=== PATIENT | female | born 1970 | race Caucasian/White ===

== ENCOUNTER 2018-01-17 10:13 | Inpatient (IN) | payer BC ==
--- OUTSIDE RECORDS SUMMARY | 2018-01-17 10:34 | XMS REPORT ---
:1970 External Reference #:[id number] Author Organization [facility] Address [address] [place] [address] Phone [phone] Care Team Providers Name Role Phone Marcelina Metzger M.D., R.D. 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 [address] PayID: [id number] [place] [address] Advance Directives Description No Advance Directives Problems Date Description Provider Status Onset: 11/19/2012 Myalgia & Myositis Unspec Hina Davis M.D. Active Onset: 11/19/2012 Depressive disorder Hina Davis M.D. Active Onset: 11/19/2012 Gastroesophageal reflux disease Hina Davis M.D. Active Onset: 11/19/2012 Anxiety state Hina Davis M.D. Active Onset: 11/19/2012 Low back pain Hina Davis M.D. Active Family History Date Family Member(s) Problem(s) Comments Father due to Auto Accident () - Age 33 Mother Hypertension Mother Hypercholesterolemia Mother Obesity Mother Diabetes Mother Depression First Daughter Asthma First Daughter Allergies Second Daughter Asthma Second Daughter Allergies Social History Type Date Description Comments Lives With Daughter x2 Lives With Spouse Smoke-Free Home is not smoke-free Pets several cats Pets 1 dog Cigarette Use Former Cigarette Smoker 5-10 Cigarettes Daily ETOH Use Denies alcohol use Recreational Drug Use Sporadically uses Marijuana Smoking Patient is a former smoker Daily Caffeine Does Not Consume Caffeine Guns in Home No Allergies, Adverse Reactions, Alerts Date Description Reaction Status Severity Comments 11/19/2012 Chiquita Peripheral Neuropathy active Mild to Moderate Medications Medication Date Status Form Strength Qnty SIG Indications Ordering Provider Imitrex 02/19/ Active Solution 6mg/0.5ML 5unit Use AT [facility] Statdose 2017 Cartridge s Onset Of Loly Metzger Migraine M.D., R.D. Headache, May Repeat In 2 Hours Diclofenac 09/30/ Active Gel 1% 100gm apply 4 M79.604 Candi Sodium 2017 grams of Teresa, gel to [facility] affected knee up to 4 times/day Ferrous 08/21/ Active Tablets 324(38Fe) 60tab 1 by mouth Candi Gluconate 2017 mg s twice a day Teresa, [facility] Fetzima 01/20/ Active Caps ER 80mg 90cap take 1 Marcelina 2014 24HR s capsule by Yassine, mouth every M.D., R.D. day Nexium 11/19/ Active Capsules DR 40mg 90cap Take One K21.9 Marcelina 2012 s Capsule By Yassine, Mouth Once M.D., R.D. Daily Ventolin HFA / Active Aerosol 108(90Base 2 puffs Unknown 0000 ) mcg/Act every every 4-6 hours as needed wheezing/ti ghtness Corlanor / Active Tablets 5mg 1 po bid Unknown 0000 Ultram / Active Tablets 50mg 90tab take one M54.5 Marcelina s tablet by Yassine, mouth twice M.D., R.D. a day as needed for pain maximum daily dose of 2 tablets- code d Vitamin B12 / Active Tablets ER 1000mcg 1 by mouth Unknown 0000 every day- sublingual- for vitamin b12 deficiency Ascorbic Acid / Active Tablets 500mg One Daily Unknown 0000 Fish Oil / Active Capsules DR 1200mg 1 by mouth Unknown 0000 Twice Daily Flaxseed Oil / Active Capsules 1400mg 1 tab by Unknown 0000 mouth Daily Adderall 03/29/ Hx Tablets 10mg 90tab 1 tab by Candi 2014 - s mouth every Teresa, 03/20/ day [facility] CENTER OPERATOR-C 2016 Fetzima 01/06/ Hx Caps ER 80mg Candi 2014 - 24HR Teresa, 01/06/ [facility] CENTER OPERATOR-C 2014 Cytomel 01/06/ Hx Tablets 25mcg Candi 2014 - Teresa, 01/20/ CALL CENTER OPERATOR-C 2014 Fetzima 01/06/ Hx Caps ER 40mg 30cap 1 tablet Candi 2014 - 24HR s every day Teresa, 01/20/ for 2 weeks CALL CENTER [facility]PERATOR-C 2014 Adderall 01/06/ Hx Tablets 5mg 30tab 1 tab po qd Candi 2014 - s Teresa, 01/20/ CALL CENTER OPERATOR-C 2014 Ondansetron 01/06/ Hx Tablets 4mg 30tab dissolve 1 Candi 2014 - Dispers s tab by Teresa, 03/20/ mouth three [facility] CENTER OPERATOR[facility] 2016 times a day as needed nausea Fluocinonide- 06/22/ Hx Cream 0.05% 30gm apply to Candi Darron 2014 - rash bid Teresa, 03/20/ [facility] CENTER OPERATOR-C 2016 Prozac 11/19/ Hx Capsules 20mg 30cap Take one po Hina 2012 - s bid Mello Davis 01/06/ Zenaida 2014 Valium / Hx Tablets 5mg Take one Unknown 0000 - pill po at 03/20/ hs 2015 Tramadol HCL / Hx Tablets ER 100mg Take one po Unknown ER 0000 - 24HR at hs 2014 Invega / Hx Tablets ER 3mg 30tab Unknown 0000 - 24HR s 2014 Adderall / Hx Tablets 10mg 30tab Take one po Unknown 0000 - s in Am 2014 Dulera / Hx Aerosol 200-5mcg/A 13gm One puff po Calderon 0000 - ct bid Wei 01/06/ MD pierre 2014 Qnasl / Hx Aerosol 80mcg/Act 8.700 Ohe spray Calderon, 0000 - gm to each Wei 01/06/ heather jay MD 2014 daily Cardizem / Hx Tablets 30mg Maghaydah, 0000 - Qutaybeh 04/23/ MD Trina 2015 Metoprolol / Hx Tablets ER 50mg 1 by mouth Unknown Succinate ER 0000 - 24HR every day 2016 Sumatriptan / Hx Solution 6mg/0.5ML 7.5ml use at [place] [address] - onset of Teresa, 02/19/ migraine [facility] CENTER OPERATOR-C 2017 headache. May repeat after 2 hours Immunizations CPT Code Status Date Vaccine Lot # [id number] Given 07/08/2016 Tdap (Adacel) [id number] Refused 03/20/2016 Influenza Virus Vaccine, Quadrivalent, 3 Yr > Quad , Preserv Free Vital Signs Date Vital Result Comment 12/22/2017 Weight 191.00 lb Weight in kg's 86.638 BP Systolic 138 mmHg Recheck 138/80 BP Diastolic 96 mmHg Recheck 138/80 Heart Rate 112 /min Body Temperature 97.2 F Respiratory Rate 18 /min O2 % BldC Oximetry 95 % 09/30/2016 Weight 200.00 lb Weight in kg's 90.720 BP Systolic 122 mmHg BP Diastolic 76 mmHg Heart Rate 95 /min Body Temperature 97.0 F Respiratory Rate 16 /min O2 % BldC Oximetry 96 % 07/08/2016 Weight 191.00 lb Weight in kg's 86.638 BP Systolic 120 mmHg BP Diastolic 78 mmHg Heart Rate 100 /min Body Temperature 96.3 F Respiratory Rate 24 /min Height 64 inches 5'4" BMI (Body Mass Index) 32.8 kg/m2 O2 % BldC Oximetry 96 % 03/20/2016 Weight 190.00 lb Weight in kg's 86.184 BP Systolic 120 mmHg BP Diastolic 72 mmHg Heart Rate 76 /min Body Temperature 98.5 F Respiratory Rate 12 /min 03/29/2015 Weight 185.00 lb Weight in kg's 83.916 BP Systolic 116 mmHg BP Diastolic 74 mmHg Heart Rate 96 /min Height 64 inches 5'4" BMI (Body Mass Index) 31.8 kg/m2 01/20/2015 Weight 183.00 lb Weight in kg's 83.009 BP Systolic 120 mmHg BP Diastolic 80 mmHg Heart Rate 96 /min Body Temperature 96.3 F 01/06/2015 Weight 188.00 lb Weight in kg's 85.277 BP Systolic 120 mmHg BP Diastolic 78 mmHg Heart Rate 110 /min Body Temperature 96.9 F 02/25/2013 Weight 187.00 lb Weight in kg's 84.823 BP Systolic 110 mmHg BP Diastolic 60 mmHg Heart Rate 88 /min 11/19/2012 Weight 177.00 lb Weight in kg's 80.287 BP Systolic 112 mmHg BP Diastolic 80 mmHg Heart Rate 76 /min Height 64.25 inches 5'4.25" BMI (Body Mass Index) 30.1 kg/m2 Results Test Date Test Result H/L Range Note Lipid Profile (Trig/Chol/HDL) 12/30/2017 Triglycerides 368 mg/dL 1 Cholesterol 255 mg/dL 2 HDL Cholesterol 49.6 mg/dL 3 LDL Cholesterol 132 mg/dL 4 Laboratory test 12/30/2017 LDL Cholesterol 150 mg/dL 5 finding Direct Laboratory test 09/11/2017 Surgical Pathology SEE RESULT BELOW 6 finding Laboratory test 08/28/2017 Cytology SEE RESULT BELOW 7 finding CBC Auto Diff 02/13/2017 White Blood Count 17.4 10^3/uL High 3.5-10.8 Red Blood Count 5.18 10^6/uL 4.0-5.4 Hemoglobin 15.3 g/dL 12.0-16.0 Hematocrit 46 % 35-47 Mean Corpuscular Volume 89 fL 80-97 Mean Corpuscular Hemoglobin 30 pg 27-31 Mean Corpuscular HGB Conc 33 g/dL 31-36 Red Cell Distribution Width 15 % 10.5-15 Platelet Count 406 10^3/uL 150-450 Mean Platelet Volume 7 um3 Low 7.4-10.4 Abs Neutrophils 13.5 10^3/uL High 1.5-7.7 Abs Lymphocytes 2.8 10^3/uL 1.0-4.8 Abs Monocytes 0.9 10^3/uL High 0-0.8 Abs Eosinophils 0.2 10^3/uL 0-0.6 Abs Basophils 0.1 10^3/uL 0-0.2 Abs Nucleated RBC 0 10^3/uL Granulocyte % 77.3 % 38-83 Lymphocyte % 15.9 % Low 25-47 Monocyte % 5.2 % 1-9 Eosinophil % 1.2 % 0-6 Basophil % 0.4 % 0-2 Nucleated Red Blood Cells % 0 Iron & Iron Binding Capacity 02/13/2017 Iron 56 g/dL 50-212 Unsaturated Iron Binding 392 g/dL Total Iron Binding Capacity 448 g/dL 250-450 % Iron Saturation 13 % Low 15-55 Iron & Iron Binding Capacity 10/01/2016 Iron 28 g/dL Low 50-212 Unsaturated Iron Binding 413 g/dL Total Iron Binding Capacity 441 g/dL 250-450 % Iron Saturation 6 % Low 15-55 Laboratory test finding 10/01/2016 Ferritin 19.2 ng/mL 11-307 Retic Count 07/17/2016 Retic Count 1.3 % 0.5-1.5 Corrected Retic Count 0.9 % 0.5-1.5 Maturation Factor Retic 1.5 Retic Index 0.60 Mean Retic Volume 85.7 Immature Retic Fraction 0.49 RBC Retic Count 5.06 10^6/uL 4.6-6.2 Hematocrit for Retic CNT 30 % Low 35-47 Laboratory test finding 07/17/2016 Ferritin < 10.0 ng/mL Low 11-307 8 Folic Acid (Folate) 3.07 ng/mL >3.99 9 Vitamin B12 634 pg/mL 180-914 10 Iron & Iron Binding 07/17/2016 Total Iron Binding 620 g/dL High 250-450 Capacity Capacity Iron < 15 g/dL Low 50-212 Unsaturated Iron Binding 605.42092 g/dL % Iron Saturation 2 % Low 15-55 Comp Metabolic Panel 07/08/2016 Sodium 133 mmol/L 133-145 Potassium 4.6 mmol/L 3.5-5.0 Chloride 101 mmol/L 101-111 Co2 Carbon Dioxide 28 mmol/L 22-32 Anion Gap 4 mmol/L 2-11 Glucose 97 mg/dL 70-100 Blood Urea Nitrogen 15 mg/dL 6-24 Creatinine 0.83 mg/dL 0.51-0.95 BUN/Creatinine Ratio 18.1 8-20 Calcium 9.8 mg/dL 8.6-10.3 Total Protein 7.4 g/dL 6.4-8.9 Albumin 4.4 g/dL 3.2-5.2 Globulin 3.0 g/dL 2-4 Albumin/Globulin Ratio 1.5 1-3 Total Bilirubin 0.20 mg/dL 0.2-1.0 Alkaline Phosphatase 64 U/L 34-104 Alt 22 U/L 7-52 Ast 18 U/L 13-39 Egfr Non- 73.4 >60 Egfr 94.4 >60 11 CBC Auto Diff 07/08/2016 White Blood Count 10.5 10^3/uL 3.5-10.8 Red Blood Count 5.27 10^6/uL 4.0-5.4 Hemoglobin 9.5 g/dL Low 12.0-16.0 Hematocrit 32 % Low 35-47 Mean Corpuscular Volume 60 fL Low 80-97 Mean Corpuscular Hemoglobin 18 pg Low 27-31 Mean Corpuscular HGB Conc 30 g/dL Low 31-36 Red Cell Distribution Width 19 % High 10.5-15 Platelet Count 542 10^3/uL High 150-450 Mean Platelet Volume 7 um3 Low 7.4-10.4 Abs Neutrophils 7.1 10^3/uL 1.5-7.7 Abs Lymphocytes 2.4 10^3/uL 1.0-4.8 Abs Monocytes 0.7 10^3/uL 0-0.8 Abs Eosinophils 0.1 10^3/uL 0-0.6 Abs Basophils 0.1 10^3/uL 0-0.2 Abs Nucleated RBC 0.01 10^3/uL Granulocyte % 67.6 % 38-83 Lymphocyte % 23.2 % Low 25-47 Monocyte % 6.9 % 1-9 Eosinophil % 1.3 % 0-6 Basophil % 1.0 % 0-2 Nucleated Red Blood Cells % 0.1 Lipid Profile (Trig/Chol/HDL) 07/08/2016 Triglycerides 477 mg/dL 12 Cholesterol 269 mg/dL 13 HDL Cholesterol 49.2 mg/dL 14 LDL Cholesterol (SEE NOTE) mg/dL 15 Cell Morphology 07/08/2016 Macrocytosis 1+ Hypochromasia 1+ Polychromasia 1+ Elliptocyte 1+ Urine DIP 01/20/2015 Specific Dennison 1.030 High 1.01-1.02 Urine pH 5 5-6 Leukocytes NEG Neg Urine Nitrites NEG Neg Total Protein, Urine TRACE Neg Urine Glucose 50 High Norm Urine Ketones NEG Neg Urobilinogen NORM Norm Urine Bilirubin NEG Neg Urine Blood about 250Ery/uL Neg Comp Metabolic Panel 01/06/2015 Sodium 135 mmol/L 133-145 Potassium 4.6 mmol/L 3.5-5.0 Chloride 101 mmol/L 101-111 Co2 Carbon Dioxide 25 mmol/L 22-32 Anion Gap 9 mmol/L 2-11 Glucose 110 mg/dL High 70-100 Blood Urea Nitrogen 18 mg/dL 6-24 Creatinine 0.99 mg/dL High 0.51-0.95 BUN/Creatinine Ratio 18.2 8-20 Calcium 10.3 mg/dL 8.6-10.3 Total Protein 7.7 g/dL 6.4-8.9 Albumin 4.8 g/dL 3.2-5.2 Globulin 2.9 g/dL 2-4 Albumin/Globulin Ratio 1.7 1-3 Total Bilirubin 0.30 mg/dL 0.2-1.0 Alkaline Phosphatase 81 U/L 34-104 Alt 68 U/L High 7-52 Ast 39 U/L 13-39 Egfr Non- 60.4 >60 Egfr 77.7 >60 16 Laboratory test finding 01/06/2015 Amylase 21 U/L Low 29-103 Lipase 14 U/L 11.0-82.0 CBC Auto Diff 01/06/2015 White Blood Count 8.9 10^3/uL 4.8-10.8 Red Blood Count 5.71 10^6/uL High 4.0-5.4 Hemoglobin 12.3 g/dL 12.0-16.0 Hematocrit 41 % 35-47 Mean Corpuscular Volume 71 fL Low 80-97 Mean Corpuscular Hemoglobin 22 pg Low 27-31 Mean Corpuscular HGB Conc 31 g/dL 31-36 Red Cell Distribution Width 18 % High 10.5-15 Platelet Count 501 10^3/uL High 150-450 Mean Platelet Volume 7 um3 Low 7.4-10.4 Abs Neutrophils 6.1 10^3/uL 1.5-7.7 Abs Lymphocytes 2.1 10^3/uL 1.0-4.8 Abs Monocytes 0.5 10^3/uL 0-0.8 Abs Eosinophils 0.1 10^3/uL 0-0.6 Abs Basophils 0.1 10^3/uL 0-0.2 Abs Nucleated RBC 0 10^3/uL Granulocyte % 68.9 % 38-83 Lymphocyte % 24.2 % Low 25-47 Monocyte % 5.6 % 1-9 Eosinophil % 0.7 % 0-6 Basophil % 0.6 % 0-2 Nucleated Red Blood Cells % 0 Laboratory test finding 01/06/2015 T3 Total 1.19 ng/mL 0.87-1.78 Free T4 (Free Thyroxine) 0.83 ng/mL 0.61-1.12 Thyroxine 7.67 ?g/dL 6.09-12.23 TSH (Thyroid Stim Horm) 3.23 ?IU/mL 0.34-5.60 Thyroperoxidase AB 0.67 IU/mL <9 Lipid Profile (Trig/Chol/HDL) 02/15/2013 Triglycerides 210 mg/dL High 40- 200 Cholesterol 253 mg/dL High Less than 200 HDL Cholesterol 56 mg/dL 40-60 17 Cholesterol/HDL Ratio 4.5 Average High 1-4.44 LDL Cholesterol 155.0 High Less Than 100 18 Liver Function Panel 02/15/2013 Total Protein 7.1 g/dL 6.2-8.1 Albumin 4.4 g/dL 3.6-5.4 Globulin 2.7 g/dL 2-4 Albumin/Globulin Ratio 1.6 1-3 Total Bilirubin 0.2 mg/dL Low 0.4-1.5 Direct Bilirubin 0.1 mg/dL 0.1-0.5 Indirect Bilirubin 0.1 mg/dL Low 0.3-1.0 Alkaline Phosphatase 62 U/L 30-110 Alt 34 U/L 14-54 Ast 30 U/L 12-42 CBC No Diff 02/15/2013 White Blood Count 6.9 10^3/uL 4.8-10.8 Red Blood Count 5.08 10^6/uL 4.0-5.4 Hemoglobin 13.1 g/dL 12.0-16.0 Hematocrit 42 % 35-47 Mean Corpuscular Volume 83 fL 80-97 Mean Corpuscular Hemoglobin 26 pg Low 27-31 Mean Corpuscular HGB Conc 31 g/dL 31-36 Red Cell Distribution Width 19 % High 10.5-15 Platelet Count 317 10^3/uL 150-450 Mean Platelet Volume 7 um3 Low 7.4-10.4 Basic Metabolic Panel 02/15/2013 Sodium 136 mmol/L 133-145 Potassium 4.3 mmol/L 3.5-5.0 Chloride 101 mmol/L 101-111 Co2 Carbon Dioxide 27.0 mmol/L 22-32 Anion Gap 8.0 mmol/L 2-11 Glucose 103 mg/dL High 70-100 Blood Urea Nitrogen 13 mg/dL 6-24 Creatinine 0.90 mg/dL 0.50-1.40 BUN/Creatinine Ratio 14.4 8-20 Calcium 9.6 mg/dL 8.1-9.9 Egfr Non- 67.7 >60 Egfr 87.1 >60 19 Laboratory test finding 02/15/2013 TSH (Thyroid Stimulating 2.57 miu/mL 0.34-5.60 20 Horm) Vitamin D 1,25-Dihydroxy 59 pg/mL 1 Desirable: <150 Borderline High: 150-199 High: 200-499 Very High: >500 2 Desirable: <200 Borderline High: 200-239 High: >239 3 Low: <40 Desirable: 40-60 High: >60 4 Desirable: <100 Near Optimal: 100-129 Borderline High: 130-159 High: 160-189 Very High: >189 5 Desirable: <100 Near Optimal: 100-129 Borderline High: 130-159 High: 160-189 Very High: >189 6 SEE RESULT BELOW Name: ANTOINETTE ARAUJO : [address]: Carmen Davis MD Acct: [id number] Unit: [id number] AGE: 47 Location: [facility] Re09/11/17 SEX: F Status: REG REF SPEC: [id number] JULIA: 09/11/171355 [facility] DR: Carmen Davis MD REQ: [id number] RECD: 09/11/17 STATUS: JAMIL SAM DR: Hina Davis MD _ ORDERED: LEVEL 4 COMMENTS: [id number] FINAL DIAGNOSIS Uterus, endometrium, biopsy: -- Early secretory endometrium. -- No evidence of hyperplasia or malignancy. PRE-OPERATIVE DIAGNOSIS Dysfunctional uterine bleeding GROSS DESCRIPTION The specimen is received in formalin labeled, EM BX, and consists of a 2.0 x 1.7 x 0.3 cm aggregate of white-pink granular to polypoid soft tissue fragments admixed with scant blood tinged mucus, which is filtered and entirely submitted in one cassette. Signed (signature on file) Dominique Teague MD 11/24 1057 END OF REPORT DEPARTMENT OF PATHOLOGY, [address] [place] [address] Temo Dominguez M.D. Director [facility] # [id number] 7 SEE RESULT BELOW Name: ANTOINETTE ARAUJO : [address]: Carmen Davis MD Acct: [id number] Unit: [id number] AGE: 47 Location: [facility] Re08/28/17 SEX: F Status: REG REF SPEC: [id number] JULIA: 08/28/17-135[facility] DR: Carmen Davis MD REQ: [id number] RECD: 08/28/170739 STATUS: JAMIL SAM DR: Candi Carroll LITERARY AGENT _ ORDERED: TP IMAGE ANAL, MC KAY MACHINE OPERATOR PHYS INTERP, HPV/Thin Prep COMMENTS: [id number] Negative for Intraepithelial lesion or Malignancy Endometrial cells in a woman over or equal to 45 years of age COMMENTS: Endometrial cells after age 45, particularly out of phase or after menopause may be associated with benign endometrium, hormonal alterations and less commonly, endometrial/uterine abnormalities. Clinical correlation is recommended. Endometrial cells correlate with the menstrual history provided. A. Ectocervical/Endocervical Specimen Adequacy: Satisfactory of evaluation Transformation zone component identified Patient Information: HPV: High risk HPV RNA testing regardless of pap results. Actual Specimen Date: 08/28/17 Last Menstrual Date: 08/24/17 Date of Last Specimen: 03/09/15 Date Time Test Result Flag (u) Normal Range 08/28/17 1358 @ HPV RNA Negative Negative @ @ The high-risk HPV types detected by the assay include: 16, @ 18, 31, 33, 35, 39, 45, 51, 52, 56, 58, 59, 66, and 68. Signed (signature on file) Dominique Teague MD 1124 This Pap test was evaluated with the assistance of the ThinPrep Test Imaging System. Due to cytologic findings at the ship superintendent microscope, comprehensive manual rescreening by a Terrazzo Helper may be required. The Pap Smear is a screening test designed to aid in the detection of premalignant and malignant conditions of the uterine cervix. It is not a diagnostic procedure and should not be used as the sole means of detecting cervical cancer. Both false- positive and false- negative reports do occur. Depending on your risk status, a Pap smear should be obtained and evaluated every 1-3 years. END OF REPORT DEPARTMENT OF PATHOLOGY, [address] [place] [address] RUN DATE: 09/01/17 [facility] LAB LIVE PAGE 1 Patient: AUGUSTINANTOINETTE [id number] (Continued) Temo Dominguez M.D. Director [facility] # [id number] Normal Range 180 to 914 Indeterminate Range 145 to 180 Deficient Range <145 11 Because ethnic data is not always readily available, this report includes an eGFR for both -Americans and non- Americans. The National Kidney Disease Education Program (NKDEP) does not endorse the use of the MDRD equation for patients that are not between the ages of 18 and 70, are , have extremes of body size, muscle mass, or nutritional status, or are non- or non-. According to the National Kidney Foundation, irrespective of diagnosis, the stage of the disease is based on the level of kidney function: Stage Description GFR(mL/min/1.73 m(2)) 1 Kidney damage with normal or decreased GFR 90 2 Kidney damage with mild decrease in GFR 60-89 3 Moderate decrease in GFR 30-59 4 Severe decrease in GFR 15-29 5 Kidney failure <15 (or dialysis) 12 Desirable <150 Borderline high 150-199 High 200-499 Very High >500 13 Desirable <200 Borderline high 200-239 High >239 14 Low <40 Desirable: 40-60 High: >60 15 Unable to calculate LDL as triglyceride is > 400 16 Because ethnic data is not always readily available, this report includes an eGFR for both -Americans and non- Americans. The National Kidney Disease Education Program (NKDEP) does not endorse the use of the MDRD equation for patients that are not between the ages of 18 and 70, are , have extremes of body size, muscle mass, or nutritional status, or are non- or non-. According to the National Kidney Foundation, irrespective of diagnosis, the stage of the disease is based on the level of kidney function: Stage Description GFR(mL/min/1.73 m(2)) 1 Kidney damage with normal or decreased GFR 90 2 Kidney damage with mild decrease in GFR 60-89 3 Moderate decrease in GFR 30-59 4 Severe decrease in GFR 15-29 5 Kidney failure <15 (or dialysis) 17 HDL Interpretation: Undesirable: High Risk: Less than 40 mg/dL Desirable: Low Risk: Greater than 60 mg/dL 18 LDL Interpretation: Low Risk Optimal Level: LDL Less than 100 mg/dL Near or Above Optimal: LDL 100-129 mg/dL Borderline High Risk: LDL 130-159 mg/dL High Risk: LDL 160-189 mg/dL Very High Risk: LDL Greater than 189 mg/dL 19 Because ethnic data is not always readily available, this report includes an eGFR for both -Americans and non- Americans. The National Kidney Disease Education Program (NKDEP) does not endorse the use of the MDRD equation for patients that are not between the ages of 18 and 70, are , have extremes of body size, muscle mass, or nutritional status, or are non- or non-. According to the National Kidney Foundation, irrespective of diagnosis, the stage of the disease is based on the level of kidney function: Stage Description GFR(mL/min/1.73 m(2)) 1 Kidney damage with normal or decreased GFR 90 2 Kidney damage with mild decrease in GFR 60-89 3 Moderate decrease in GFR 30-59 4 Severe decrease in GFR 15-29 5 Kidney failure <15 (or dialysis) 20 FASTING 10 HOUR 21 Test Performed by: [place] [address] Vegetable [employer] Farmworker: Nilton Kelley III, M.D. Procedures Date CPT Code Description Status 01/06/2015 00925 EKG, at Least 12 Leads w/Interpretation and Report Completed Encounters Type Date Location Provider CPT E/M Dx Office Visit 09/30/2016 9:30a Main Office JACKIE Bae[facility]C 99758 M79.604 E61.1 Office Visit 07/08/2016 1:30p Main Office [facility] 80432 Z00.00 K31.84 R00.2 R05 G89.29 Z23 Office Visit 03/20/2016 4:00p Main Office [facility] 51630 F32.9 Office Visit 03/29/2015 11:00a Main Office [facility] 85307 F32.9 J06.9 Office Visit 01/20/2015 10:45a Main Office JACKIE Bae-C 90969 311 Office Visit 01/06/2015 11:30a Main Office JACKIE [facility]ae[facility]C 90618 789.9 311 785.2 Office Visit 02/25/2013 3:00p Main Office Hina Davis M.D. 84845 477.9 311 272.2 530.81 Office Visit 11/19/2012 9:45a Main Office Hina Davis M.D. 56883 729.1 311 530.81 300.00 724.2 Plan of Care 12/22/2017 - Marcelina Metzger M.D., R.D.K31.84 DogtxiqhgpykmL70.9 Major depressive disorder, single episode, bqsynvfnlalK11.569 Pain in unspecified kneeE78.2 Mixed hyperlipidemiaRecommendations:Schedule a physical with me soon.
--- OUTSIDE RECORDS SUMMARY | 2018-01-17 10:34 | XMS REPORT ---
:1970 External Reference #:[id number] Author Organization [employer] Address [address] [place] [address] [place] [address] Phone [phone] Care Team Providers Name Role Phone Marcelina Metzger MD Primary Care Physician Unavailable Payers Type Date Identification Numbers Payment Provider Subscriber Commercial Effective: Policy Number: BS [employer]ets Judson Araujo II 2015 [id number] PayID: [id number] [address] [address] [place] [address] Problems Date Description Provider Status Onset: 05/23/2016 Gastroparesis syndrome Jareth Foote, [facility] Active Onset: 01/02/2018 Prepatellar bursitis of right knee Rashmi Nathan M.D. Active Onset: 10/09/2016 Trochanteric bursitis Rashmi Nathan M.D. Active Onset: 10/09/2016 Sprain of lateral collateral Rashmi Nathan M.D. Active ligament of knee Family History Date Family Member(s) Problem(s) Comments General Diabetes General Heart Disease General Hypertension General Stroke Father due to Motor Vehicle () Accident Mother Diabetes Mother Hypertension Mother maternal grandmother dec at 55 due to [place] Siblings 1 brother, no known cardiac issues Social History Type Date Description Comments Marital Status Lives With Occupation Disabled Cigarette Use Never Smoked Cigarettes ETOH Use Denies alcohol use Recreational Drug Use prev smoked marijuana Smoking Patient is a former smoker Daily Caffeine Does Not Consume Caffeine Exercise Type/Frequency Does not exercise Allergies, Adverse Reactions, Alerts Date Description Reaction Status Severity Comments 02/21/2015 Geodon active peripheral neuropathy 05/23/2016 Environmental active 05/23/2016 Latex Urticaria active 05/23/2016 Reglan active Neuro reaction Medications Medication Date Status Form Strength Qnty SIG Indications Ordering Provider Augmentin 01/16/ Active Tablets 875-125mg 28tabs take 1 by M25.561 Rashmi 2017 mouth Jac, twice a M.D. day for 14 days Tramadol HCL 01/16/ Active Tablets 50mg 14tabs 1 tab M25.561 Rashmi 2017 twice a Jac, day as M.D. needed for pain Fish Oil 10/01/ Active Capsules 1400mg 4,[address] per day. DO Qamar [facility] Corlanor 07/30/ Active Tablets 5mg 180tab 1 tab by Jareth Hobson s mouth DO Qamar twice a [facility] day Fetzima / Active Caps ER 80mg 1 by mouth Unknown 0000 24HR qd Am Nexium / Active Capsules 40mg 1 by mouth Unknown 0000 DR every day PM Ultram / Active Tablets 50mg 1 po bid Unknown 0000 Imitrex / Active Solution 6mg/0.5ML inject Unknown 0000 twice a day as needed migraine max 2 doses a day and 2 days per week Proair HFA / Active Aerosol 108(90Base 2 puffs by Unknown 0000 ) mcg/Act mouth every 4 hours as needed Flovent HFA / Active Aerosol 44mcg/Act inhale 2 Unknown 0000 puffs twice a day as needed Flax Seed Oil / Active Capsules 1000mg 1 by mouth Unknown 0000 every day Vitamin C / Active 500mg 1 tab Unknown 0000 daily Vitamin B 12 / Active 1 by mouth Unknown 0000 every day Iron / Active 65mg 2 tabs Unknown 0000 daily Metoprolol 05/23/ Hx Tablets ER 50mg 30tabs 1 by mouth R00.0 Jareth Carmona. Succinate ER 2016 - 24HR every day DO Qamar 08/18/ [facility] 2016 Diltiazem HCL 03/04/ Hx Tablets 30mg 180tab 1 by mouth R00.0 Qutaybeh 2015 - s twice a S. 05/23/ day [place], 2015 M.D. Ondansetron / Hx Tablets 4mg 1 tab po Unknown 0000 - Dispers three 10/15/ times a 2015 day prn Fluocinonide / Hx Cream 0.05% apply bid Unknown 0000 - prn 2015 Valium / Hx Tablets 5mg 1 po qHS Unknown 0000 - 2015 Invega / Hx Tablets ER 3mg 1 by mouth Unknown 0000 - 24HR every 2014 Adderall / Hx Tablets 10mg take 1 Unknown 0000 - tablet by 2015 daily Medications Administered in Office Medication Date Status Form Strength Qnty SIG Indications Ordering Provider Depomedrol Administered Injection Rashmi 40MG 018 Zenaida Nathan Vital Signs Date Vital Result Comment 01/16/2018 Height 64 inches 5'4" Heart Rate 84 /min BP Systolic Sitting 120 mmHg BP Diastolic Sitting 80 mmHg Respiratory Rate 16 /min Body Temperature 99.9 F tympanic Pain Level 10 01/02/2018 Height 64 inches 5'4" Heart Rate 76 /min BP Systolic 110 mmHg BP Diastolic 68 mmHg Respiratory Rate 16 /min Body Temperature 97.6 F Pain Level 3 11/06/2017 Height 64 inches 5'4" Weight 198.00 lb Heart Rate 92 /min BP Systolic Sitting 102 mmHg Lue reg cuff BP Diastolic Sitting 86 mmHg Lue reg cuff BP Systolic Standing 98 mmHg Lue reg cuff BP Diastolic Standing 82 mmHg Lue reg cuff Respiratory Rate 16 /min BMI (Body Mass Index) 34.0 kg/m2 Ejection Fraction 65-70% 01/30/16 02/20/2017 Height 64 inches 5'4" Weight 199.00 lb no shoes Heart Rate 92 /min BP Systolic Sitting 136 mmHg Rue reg cuff BP Diastolic Sitting 88 mmHg Rue reg cuff BP Systolic Standing 134 mmHg Rue reg cuff BP Diastolic Standing 86 mmHg Rue reg cuff Respiratory Rate 18 /min BMI (Body Mass Index) 34.2 kg/m2 Ejection Fraction 65-70% 01/30/2016-echo 10/09/2016 Height 64 inches 5'4" Weight 190.00 lb Heart Rate 97 /min BP Systolic 136 mmHg BP Diastolic 95 mmHg Body Temperature 97.3 F Pain Level 9 BMI (Body Mass Index) 32.6 kg/m2 08/19/2016 Height 64 inches 5'4" Weight 196.00 lb without shoes Heart Rate 90 /min BP Systolic 112 mmHg Lue reg cuff BP Diastolic 90 mmHg Lue reg cuff BP Systolic Sitting 110 mmHg Lue reg cuff BP Diastolic Sitting 80 mmHg Lue reg cuff BP Systolic Standing 130 mmHg Rue reg cuff Sit BP Diastolic Standing 82 mmHg Rue reg cuff Sit BP Systolic Lying Down 120 mmHg Rue reg cuff Stand BP Diastolic Lying Down 84 mmHg Rue reg cuff Stand BMI (Body Mass Index) 33.6 kg/m2 07/15/2016 Height 64 inches 5'4" Weight 190.12 lb without shoes Heart Rate 101 /min BP Systolic Sitting 110 mmHg Lue reg cuff BP Diastolic Sitting 70 mmHg Lue reg cuff BP Systolic Standing 98 mmHg Lue reg cuff BP Diastolic Standing 70 mmHg Lue reg cuff BMI (Body Mass Index) 32.6 kg/m2 Ejection Fraction 65-70% 01/30/2016 05/23/2016 Height 64 inches 5'4" Weight 190.00 lb w/o shoes Heart Rate 104 /min reg BP Systolic Sitting 130 mmHg Lue, reg cuff BP Diastolic Sitting 90 mmHg Lue, reg cuff BP Systolic Standing 134 mmHg Lue BP Diastolic Standing 90 mmHg Lue Respiratory Rate 16 /min BMI (Body Mass Index) 32.6 kg/m2 Ejection Fraction 65-70% as of 01/30/16 echo 03/27/2016 Height 64 inches 5'4" Heart Rate 80 /min Apical , regt BP Systolic 128 mmHg LA BP Diastolic 86 mmHg LA BP Systolic Sitting 120 mmHg Ra BP Diastolic Sitting 86 mmHg Ra 03/04/2016 Height 64 inches 5'4" Weight 190.75 lb w/shoes Heart Rate 96 /min BP Systolic Sitting 132 mmHg Ra reg cuff BP Diastolic Sitting 84 mmHg Ra reg cuff BMI (Body Mass Index) 32.7 kg/m2 Ejection Fraction 65-70% Echo 01/30/16 10/17/2015 Height 64 inches 5'4" Weight 189.00 lb Heart Rate 108 /min BP Systolic Sitting 154 mmHg LA, reg BP Diastolic Sitting 96 mmHg LA, reg BMI (Body Mass Index) 32.4 kg/m2 Ejection Fraction 60%-65% 01/20/15 echo 02/23/2015 Height 64 inches 5'4" Weight 185.00 lb Heart Rate 82 /min BP Systolic Sitting 114 mmHg LA< reg BP Diastolic Sitting 84 mmHg LA< reg BMI (Body Mass Index) 31.8 kg/m2 Ejection Fraction 60%-65% echo 01/20/15 02/23/2015 Ejection Fraction 60-65% as of 01/20/15 echo Results Test Date Test Result H/L Range Note Laboratory test finding 09/12/2016 LDL Cholesterol Direct 149 mg/dL 1 Order 10/20/2015 24 hour holter monitor <pending> 1 Desirable: <100 mg/dL Near Optimal: 100-129 mg/dL Borderline High: 130-159 mg/dL High: 160-189 mg/dL Very High: >189 mg/dL Procedures Date CPT Code Description Status 01/02/2018 30014 Inject/Drain Joint/Bursa Major W/O US Completed 11/06/2017 35768 EKG Tracing & Interpretation Completed 08/19/2016 79230 EKG Tracing & Interpretation Completed 07/15/2016 71935 EKG Tracing & Interpretation Completed 05/23/2016 58851 EKG Tracing & Interpretation Completed 03/27/2016 14042 EKG Tracing & Interpretation Completed 01/30/2016 60503 ECHO Transthoracic, Real-Time 2D With Doppler And Color Completed Flow 10/22/2015 76305 Holter Monitor Review (24 hr)dr review & interp only Completed 10/18/2015 38927 ECHO Stress Test Incl Perf Contiuous ekg Monitoring Completed W/Phys Superv 10/17/2015 28821 EKG Tracing & Interpretation Completed 02/23/2015 59744 EKG Tracing & Interpretation Completed 01/20/2015 52523 ECHO Transthorasic Realtime 2D W Doppler & Color Flow Completed Hosp Encounters Type Date Location Provider CPT E/M Dx Office Visit 01/02/2018 [facility] Rashmi Nathan M.D. 45706 M25.562 9:[facility]a [facility] M25.462 M70.41 M25.561 Office Visit 11/06/2017 2:00p [facility] [place] [address] [facility] FAC E78.5 E78.1 Office Visit 02/20/2017 1:40p [facility] [place] [address] [facility] FAC E78.5 E78.1 Office Visit 10/09/2016 9:30a [facility] Rashmi Nathan M.D. 82896 M25.551 [facility] M25.561 S83.421A M70.61 Office Visit 08/19/2016 2:20p [facility] [place] [address] [facility] FACC D64.9 E78.5 Office Visit 07/15/2016 2:00p [place] [address] [facility] FACC D64.9 Office Visit 05/23/2016 3:00p [facility] [place] [address] I10 FACC R00.0 K31.84 Office Visit 03/04/2016 1:20p [facility], [address] R00.0 M.D. E66.9 K31.84 I51.7 Office Visit 10/17/2015 1:20p [facility], [address] R01.1 M.DJony E66.9 R94.31 R06.02 R00.0 R00.2 Office Visit 02/23/2015 2:00p [facility], [address] 794.31 M.DJony 785.2 278.00 Plan of Care Future Appointment(s):01/19/2018 8:00 am - Rashmi Nathan M.D. [facility]02/12/2018 7:30 am - Rashmi Nathan M.D. at [facility]01/26/2018 9:15 am - Rashmi Nathan M.D. at [facility]01/16/2018 - Rashmi Nathan M.D.M25.561 Pain in right kneeNew Medication:Augmentin 875-125 mgTramadol HCL 50 mgFollow up:Follow up: friday at 8amM70.41 Prepatellar bursitis, right knee
[2018-01-17] MEDS ORDERED: Ketorolac INJ* 30 MG/ML 1 ML VIAL IV PUSH ONE (11:48)
[2018-01-17] MEDS ORDERED: NS 0.9% 1000 ML* 1,000 ML IV ONE (11:48)
[2018-01-17 12:18] LABS: ABS Basophils 0 10^3/ul (0-0.2); ABS Eosinophils 0 10^3/ul (0-0.6); ABS Lymphocytes 1.3 10^3/ul (1.0-4.8); ABS Monocytes 1.2 10^3/ul (0-0.8); ABS Neutrophils 14.5 10^3/ul (1.5-7.7); ABS Nucleated RBC 0 10^3/ul; Eosinophil % 0.2 % (0-6); Hematocrit 39 % (35-47); Hemoglobin 12.9 g/dl (12.0-16.0); Lymphocyte % 7.4 % (25-47); Mean Corpuscular HGB Conc 33 g/dl (31-36); Mean Corpuscular Hemoglobin 28 pg (27-31); Mean Corpuscular Volume 85 fL (80-97); Mean Platelet Volume 6.7 um3 (7.4-10.4); Nucleated Red Blood Cells % 0; Platelet Count 284 10^3/ul (150-450); Red Blood Count 4.52 10^6/ul (4.00-5.40); Red Cell Distribution Width 15 % (10.5-15)
[2018-01-17 12:43] LABS: EGFR Non-African American 75.2 (>60)
--- NOTE | 2018-01-17 13:05 | ED ---
Lower Extremity - HPI Summary HPI Summary: Patient presents with right knee pain and swelling that started Friday of this week. She noticed this after having intercourse. She was seen by Dr. Nathan who diagnosed her with an inflamed prepatellar bursitis and she is scheduled to have surgery this coming week. Yesterday she reports this became red, hot and swollen and has been worse today. She was started on Augmentin yesterday and reports she's had no improvement. She came to the emergency department per Dr. Nathan's recommendation. She denies numbness, tingling or weakness. She has 5 out of 10 pain her leg in a 90 flexed position however pain jumps up to an 8 /10 when she extends or flexes beyond this limited range. Denies nausea, vomiting, diarrhea. She has felt feverish. Took 2 Tylenol prior to arrival as well as 150 mg tramadol which she believes is starting to take the edge off the pain (she takes 50mg BID routinely for fibromyalgia). - History of Current Complaint Chief Complaint: EDExtremitLalyaower Stated Complaint: RT KNEE POSS INFECTION Time Seen by Provider: 01/17/18 11:11 Hx Obtained From: Patient, Family/[employer] Worker - female friend Pain Intensity: 8 - Allergies/Home Medications Allergies/Adverse Reactions: Allergies Allergy/AdvReac Type Severity Reaction Status Date / Time metoclopramide [From Reglan] Allergy See Comment Verified 01/17/18 11:31 ziprasidone [From Geodon] Allergy See Comment Verified 01/17/18 11:31 Home Medications: Home Medications Amoxicillin/Clavulanate TAB* [Augmentin TAB 875*] 875 mg PO BID 01/17/18 [ History Confirmed 01/17/18] Esomeprazole Magnesium [Nexium] 40 mg PO DAILY 01/17/18 [History Confirmed 01/17] Ivabradine (NF) [Corlanor] 5 mg PO BID 01/17/18 [History Confirmed 01/17/18] Levomilnacipran (NF) [Fetzima] 80 mg PO DAILY 01/17/18 [History Confirmed ] Tramadol HCl 50 mg PO SEE INSTRUCTIONS 01/17/18 [History Confirmed 01/17/18] PMH/Surg Hx/FS Hx/Imm Hx Previously Healthy: Yes Endocrine/Hematology History: Denies: Hx Anticoagulant Therapy, Hx Blood Disorders, Autoimmune Disease Neurological History: Reports: Hx Migraine, Other Neuro Impairments/Disorders - fibromyalgia Psychiatric History: Reports: Hx Bipolar Disorder Infectious Disease History: No Infectious Disease History: Denies: Hx of Known/Suspected MRSA, Traveled Outside the [place] in Last 30 Days - Social History Alcohol Use: None Substance Use Type: Reports: Marijuana Substance Use Comment - Amount & Last Used: 01/16/18 Hx Tobacco Use: Yes - not currently Smoking Status (MU): Former Smoker Review of Systems Positive: Fever. Negative: Fatigue Negative: Vomiting, Nausea Genitourinary: Negative Positive: Arthralgia, Decreased ROM, Edema Skin: Other - rednes, swelling Neurological: Negative Negative: Weakness, Paresthesia, Numbness Psychological: Normal All Other Systems Reviewed And Are Negative: Yes Physical Exam Triage Information Reviewed: Yes Vital Signs On Initial Exam: Initial Vitals Temp Pulse Resp BP Pulse Ox 97.0 F 107 16 136/82 98 01/17/18 10:15 01/17/18 10:15 01/17/18 10:15 01/17/18 10:15 01/17/18 10:15 Vital Signs Reviewed: Yes Appearance: Positive: Well-Appearing, Well-Nourished, Pain Distress Skin: Positive: Warm, Skin Color Reflects Adequate Perfusion, Dry - monserrat erythema over Rt anterior knee - focal, well defined area of raised tissue over anterior knee (appears to be bursa based on anatomy) - peripheral skin is w/ erythema and well demarcared borders that do not circumvent the leg - fever to touch, TTP - feels better w/ cool touch/ice - no vesicles, no skin breakdown, no streaking Head/Face: Positive: Normal Head/Face Inspection Eyes: Positive: EOMI ENT: Positive: Hearing grossly normal Respiratory/Lung Sounds: Positive: Breath Sounds Present Cardiovascular: Positive: Pulses are Symmetrical in both Upper and Lower Extremities, Leg Edema Right - knee only -no thigh or calf edema, no popliteal edema. Negative: Leg Edema Left Musculoskeletal: Positive: Limited @ - Rt knee ROM limited d/t pain - feels best in flexed 90 degree position, lying on her side Neurological: Positive: Normal, Sensory/Motor Intact, Alert, Oriented to Person Place, Time, CN Intact II-III Psychiatric: Positive: Normal Diagnostics - Vital Signs Vital Signs Temp Pulse Resp BP Pulse Ox 01/17/18 12:09 89 116/73 92 08/11/18 12:00 89 91 01/17/18 11:37 92 103/62 91 01/17/18 10:15 97.0 F 107 16 136/82 98 - Laboratory Lab Results: Lab Results 01/17/18 01/17/18 01/17/18 Range/Units 12:07 12:07 12:07 WBC 17.0 H (3.5-10.8) 10^3/ul RBC 4.52 (4.00-5.40) 10^6/ul Hgb 12.9 (12.0-16.0) g/dl Hct 39 (35-47) % MCV 85 (80-97) fL MCH 28 (27-31) pg MCHC 33 (31-36) g/dl RDW 15 (10.5-15) % Plt Count 284 (150-450) 10^3/ul MPV 6.7 L (7.4-10.4) um3 Neut % (Auto) 85.1 H (38-83) % Lymph % (Auto) 7.4 L (25-47) % [place]bach % (Auto) 7.0 (0-7) % Eos % (Auto) 0.2 (0-6) % Baso % (Auto) 0.3 (0-2) % Absolute Neuts (auto) 14.5 H (1.5-7.7) 10^3/ul Absolute Lymphs (auto) 1.3 (1.0-4.8) 10^3/ul Absolute Monos (auto) 1.2 H (0-0.8) 10^3/ul Absolute Eos (auto) 0 (0-0.6) 10^3/ul Absolute Basos (auto) 0 (0-0.2) 10^3/ul Absolute Nucleated RBC 0 10^3/ul Nucleated RBC % 0 Sodium 134 L (135-145) mmol/L Potassium 4.2 (3.5-5.0) mmol/L Chloride 103 (101-111) mmol/L Carbon Dioxide 24 (22-32) mmol/L Anion Gap 7 (2-11) mmol/L BUN 17 (6-24) mg/dL Creatinine 0.81 (0.51-0.95) mg/dL Est GFR ( Amer) 90.9 (>60) Est GFR (Non-Af Amer) 75.2 (>60) BUN/Creatinine Ratio 21.0 H (8-20) Glucose 123 H (70-100) mg/dL Lactic Acid 1.3 (0.5-2.0) mmol/L Calcium 9.2 (8.6-10.3) mg/dL Total Bilirubin 0.40 (0.2-1.0) mg/dL AST 20 (13-39) U/L ALT 31 (7-52) U/L Alkaline Phosphatase 80 (34-104) U/L C-Reactive Protein 187.76 H (<8.01) mg/L Total Protein 6.9 (6.4-8.9) g/dL Albumin 3.7 (3.2-5.2) g/dL Globulin 3.2 (2-4) g/dL Albumin/Globulin Ratio 1.2 (1-3) Result Diagrams: 01/17/18 12:07 01/18/18 05:34 Lab Statement: Any lab studies that have been ordered have been reviewed, and results considered in the medical decision making process. Lower Extremity Course/Dx - Course Course Of Treatment: Discussed case w/ Dr. Stearns who agrees to see pt. He drained bursa and sent body fluid for cx. Will admit, start IV anbx and pt will most likely have surgery tonight or tomorrow. Pt agrees w/ plan and reports some relief after drainage. - Diagnoses Provider Diagnoses: Infection of right prepatellar bursa Discharge - Sign-Out/Discharge Documenting (check all that apply): Patient Departure - Discharge Plan Condition: Stable Disposition: ADMITTED TO [facility] - Billing Disposition and Condition Condition: STABLE Disposition: Admitted to [facility]
[2018-01-17] MEDS ORDERED: Acetaminophen TAB* 325 MG PO PRN (13:29)
[2018-01-17] MEDS ORDERED: Docusate CAP* 100 MG PO PRN (16:17)
[2018-01-17] MEDS ORDERED: Polyethylene Glycol 3350* 17 GM PACKET PO PRN (16:17)
[2018-01-17] MEDS ORDERED: Vancomycin per Pharmacy* NOTE FOLLOW UP PRN (16:52)
[2018-01-17] MEDS ORDERED: Vancomycin(*) 1,500 MG in NS 0.9% 250 ML* 250 ML IVPB ONE (17:00)
--- NOTE | 2018-01-17 18:25 | HP ---
HISTORY AND PHYSICAL: DATE OF ADMISSION: 01/17/18 CHIEF COMPLAINT: Right prepatellar bursitis. HISTORY OF PRESENT ILLNESS: Antoinette is 47 years old. She has been seen by Dr. Nathan for prepatellar bursitis as an outpatient. She came back a day or 2 ago in the clinic and it was red and warm. Dr. Nathan put her on Augmentin and told her that if it did not get better to go to the emergency room ov er the weekend. She says that it has become more painful, more warm, she has felt a little feverish and so she came to the emergency room. Again, she has felt a little febrile. She denies any night s weats or any other systemic signs of infection, but she is reporting more pain. It is becoming incre asingly difficult to move the knee. Weightbearing is painful. She has been taking the Augmentin. PAST MEDICAL HISTORY: Positive for history of bipolar disorder, asthma, history of gastroparesis, fi bromyalgia, sleep apnea, sinus disease, allergic rhinitis. She denies any history of recurrent infec tions. MEDICATIONS: Her home medications include: 1. Augmentin. 2. Tramadol. 3. Levomilnacipran. 4. Ivabradine. 5. Esomeprazole. ALLERGIES: METOCLOPRAMIDE and ZIPRASIDONE. SOCIAL HISTORY: She reports a history of marijuana use. She does not currently use tobacco, but has in the past. She denies other illicit drug use. REVIEW OF SYSTEMS: A review of systems was conducted and is negative except for that mentioned above . PHYSICAL EXAMINATION GENERAL: Awake and alert, uncomfortable, but oriented x3. VITAL SIGNS: Afebrile. Vital signs are stable here in the emergency room. HEENT: Normocephalic, atraumatic. NECK: Supple. Full painless range of motion. CHEST: Normal respiratory effort. No deformity. ABDOMEN: Soft, nondistended. MUSCULOSKELETAL: The examination of the bilateral lower extremities, the left lower extremity is unr emarkable. The right lower extremity shows a large prepatellar bursitis. It is red and warm. There is some erythema surrounding the area of bursitis. The knee rested about 20 degrees of flexion. Sh e has about a 45- degree motion arc before it becomes too painful. She has no effusion. The joint l ine is minimally tender. SKIN: There is redness over the prepatellar bursitis, some erythema surrounding the area. LABORATORY DATA: White blood cell count is 17 with 85% neutrophils. The CRP is 187. The lactic ac id is 1.3 and within normal limits. IMPRESSION: Septic right prepatellar bursitis. PLAN: I aspirated the bursa and sent the fluid for cultures. She will be admitted and started on va ncomycin. Should the cultures show something else, we will of course tailor the antibiotics to the c ulture results. I have discussed with Dr. Nathan, who is on-call tomorrow about doing a surgery tomor row morning. Dr. Nathan will go ahead and do that. She has been seeing her as an outpatient. She wi ll be made n.p.o. at midnight. [id number]/[facility] #: [id number]
[2018-01-17] MEDS: IVABRADINE 5 MG PO SCH (20:25)
[2018-01-17] MEDS: ESOMEPRAZOLE 40 MG PO SCH (22:38)
[2018-01-17] MEDS: oxyCODONE/Acetamin 5/325 MG* TAB PO PRN (23:59)
[2018-01-18] MEDS: NS 0.9% 1000 ML* 1,000 ML IV SCH ×2 (00:01→21:23)
[2018-01-18] MEDS: Vancomycin(*) 1,000 MG in NS 0.9% 250 ML* 250 ML IVPB SCH ×3 (01:17→18:08)
[2018-01-18] MEDS ORDERED: Metoclopramide IV* 5 MG/ML 2 ML VIAL IV ONE (06:00)
[2018-01-18] MEDS ORDERED: Famotidine IV* 10 MG/ML 2 ML (20 mg) IV ONE (06:00)
[2018-01-18 06:45] LABS: EGFR Non-African American 86.1 (>60)
[2018-01-18] MEDS ORDERED: KETAMINE HCL* 50 MG/ML 10 ML VIAL ONE (07:33)
[2018-01-18] MEDS ORDERED: Midazolam* 1 MG/ML 5 ML VIAL (5 MG) ONE (07:33)
[2018-01-18] MEDS ORDERED: fentaNYL* 50 MCG/ML 2 ML VIAL (100 MCG VIAL) ONE (07:33)
[2018-01-18] MEDS ORDERED: Albuterol 2.5 MG/3 ML NEB.SOL* (0.083%) INH ONE (08:03)
[2018-01-18] MEDS ORDERED: ROPIVACAINE 5 MG/ML 30 ML BTL (0.5%) ONE (08:03)
[2018-01-18] MEDS ORDERED: fentaNYL* 50 MCG/ML 5 ML VIAL (250 MCG VIAL) ONE (08:13)
[2018-01-18] MEDS ORDERED: Bacitracin IV* 50,000 UNITS INJ ONE (08:22)
[2018-01-18] MEDS ORDERED: Morphine INJ* 2 MG/ML 1 ML SYRINGE (TWO MG - NEW SYRINGE VERSION) IV PRN (08:35)
[2018-01-18] MEDS ORDERED: fentaNYL* 50 MCG/ML 2 ML VIAL (100 MCG VIAL) IV PRN (08:35)
[2018-01-18] MEDS ORDERED: DiMENhydriNATE IV* 50 MG/ML VIAL IV PUSH PRN (08:35)
[2018-01-18] MEDS ORDERED: Scopolamine 1.5 mg* PATCH TRANSDERM PRN (08:35)
[2018-01-18] MEDS ORDERED: Naloxone* 0.4 MG/ML 1 ML VIAL IV PRN (08:35)
[2018-01-18] MEDS ORDERED: Dexamethasone IV* 4 MG/ML 1 ML (4 MG) ONE (09:10)
[2018-01-18] MEDS ORDERED: Ondansetron INJ* 2 MG/ML VIAL ONE (09:10)
[2018-01-18] MEDS ORDERED: Phenylephrine INJ* 10 MG/ML 1 ML VIAL (10 MG) ONE (09:10)
[2018-01-18] MEDS ORDERED: Succinylcholine* 20 MG/ML 10 ML VIAL ONE (09:10)
[2018-01-18] MEDS ORDERED: Propofol* 10 MG/ML 20 ML BTL IV PUSH ONE (09:10)
[2018-01-18] MEDS ORDERED: Lidocaine 2% PF * 5 ML VIAL ONE (09:10)
[2018-01-18] MEDS: IVABRADINE 5 MG PO SCH ×2 (11:03→21:18)
[2018-01-18] MEDS: oxyCODONE/Acetamin 5/325 MG* TAB PO PRN (11:03)
[2018-01-18] MEDS: LEVOMILNACIPRAN 80 MG PO SCH (11:04)
[2018-01-18] MEDS ORDERED: oxyCODONE/Acetamin 5/325 MG* TAB PO PRN (11:06)
[2018-01-18] MEDS ORDERED: SUMAtriptan SQ* 6 MG/0.5 ML VIAL SUBCUT PRN (13:37)
[2018-01-18] MEDS: Ondansetron INJ* 2 MG/ML VIAL IV PRN ×2 (13:45→21:22)
[2018-01-18] MEDS ORDERED: Scopolamine 1.5 mg* PATCH TRANSDERM SCH (14:00)
[2018-01-18] MEDS ORDERED: Vancomycin Trough Check NOTE FOLLOW UP ONE (16:30)
[2018-01-18] MEDS ORDERED: PROCHLORPERAZINE INJ 5 MG/ML 2 ML VIAL IV PRN ×2 (17:24→17:31)
[2018-01-18] MEDS ORDERED: Prochlorperazine TAB* 10 MG PO PRN (17:27)
[2018-01-18] MEDS: Morphine INJ* 2 MG/ML 1 ML SYRINGE (TWO MG - NEW SYRINGE VERSION) IV PRN ×2 (18:01→21:58)
[2018-01-18] MEDS: Vancomycin(*) 1,250 MG IV Q8H IVPB SCH ×2 (19:01)
--- NOTE | 2018-01-18 20:28 | OP ---
OPERATIVE REPORT: DATE OF OPERATION: 01/18/18 DATE OF : 66 SURGEON: Rashmi Nathan MD ANESTHESIOLOGIST: Dr. Mayo. ANESTHESIA: General. PRE-OP DIAGNOSIS: Infected right prepatellar bursa. POST-OP DIAGNOSIS: Infected right prepatellar bursa. OPERATIVE PROCEDURE: Right infected prepatellar bursa irrigation and debridement with bursectomy. BRIEF HISTORY/INDICATION: Ms. Araujo is a 47-year-old female who has had chronic right knee pain and swelling due to prepatellar bursitis. Over the last 48 hours, she developed acute onset of erythema and warmth. She was seen in the outpatient orthopedic clinic on 01/16/18 and diagnosed with infecte d prepatellar bursitis. She was placed on Augmentin. She did not improve over the next 24 hours and under Orthopedics guidance, went to the emergency room. Dr. King, my partner, admitted her and asp irated some fluid for cultures. He made her n.p.o. after midnight for a formal washout in the OR and debridement with me. This morning, the patient reports that the IV antibiotics have started to help her already. She feels less pain. She denies any pain with motion at the knee. Informed consent w as obtained from the patient. She understands the risks of surgery include, but are not limited to b leeding, infection, damage to nearby structures, continued pain, need for further surgery, continued infection, stroke, heart attack, blood clot, and . She wishes to proceed. INTRAOPERATIVE FINDINGS: Intraoperatively, the patient was noted to have an infected bursa. There w as no violation of the knee joint capsule that was evident. There was no significant effusion of the knee joint. COMPLICATIONS: None. ESTIMATED BLOOD LOSS: 200 cc. SPECIMENS: Multiple culture swabs and bursal tissue sent for cultures and sensitivities. DESCRIPTION OF PROCEDURE: Ms. Araujo was identified in the preanesthesia unit. Her right lower extre mity was marked as the correct operative site. Informed consent was signed and placed in the chart. The patient was taken to the operating room. She had a scheduled IV vancomycin dose, which was give n to her. The right lower extremity was prepped and draped in the usual sterile fashion. Preop time - out was made to correctly identify the patient, side and site. A 6 cm longitudinal incision was ma de over the prepatellar bursa. Electrocautery was used to dissect down to the bursa. There was some purulent fluid, which was collected with culture swabs and sent for cultures and sensitivities. The inflamed infected bursa was visualized. This was carefully excised with electrocautery and a 10-eitan de. Next, the surrounding area was debrided with both rongeur and curette. Any necrotic or infected appearing soft tissue was removed. A 9 L of sterile saline was then used to irrigate the region. Electrocautery was used to obtain meti culous hemostasis. Careful inspection of the joint capsule at this point showed that there was no vi olation of the joint capsule and no obvious connection or obvious tracking of the infection into the joint capsule. Prepatellar bursa removed was 6 x 5 cm in size. This, therefore, left an abundant josé miguel unt of skin. A 10-blade was used to remove an ellipse of skin from both the medial and lateral skin edge. The wound was then carefully closed in a layered fashion using 0 and 2-0 Vicryl. Every effort was made to tack soft tissue together to avoid a space for hematoma formation. The skin was cl osed using running 3- 0 nylon suture. Sterile Xeroform, 4x4's, and Webril were used to cover the inc ision. Toni wrap was placed over this. The patient's anesthesia was reversed without difficulty. Magalys aguilar was taken to the PACU in stable condition. Intended weightbearing will be weightbearing as tolerat ed. She will continue on the IV vancomycin. We will obtain an infectious disease consult tomorrow a .m. and follow the culture and sensitivities. [id number]/[facility] #: [id number]
[2018-01-18] MEDS: ESOMEPRAZOLE 40 MG PO SCH (21:18)
[2018-01-19] MEDS: Vancomycin(*) 1,250 MG IV Q8H IVPB SCH ×4 (02:36→09:49)
[2018-01-19] MEDS: Morphine INJ* 2 MG/ML 1 ML SYRINGE (TWO MG - NEW SYRINGE VERSION) IV PRN ×2 (03:07→06:30)
[2018-01-19] MEDS: Ondansetron INJ* 2 MG/ML VIAL IV PRN (04:17)
[2018-01-19] MEDS ORDERED: Enoxaparin(*) 30 MG/0.3 ML SYR SUBCUT SCH (09:00)
[2018-01-19] MEDS: IVABRADINE 5 MG PO SCH (09:45)
[2018-01-19] MEDS: LEVOMILNACIPRAN 80 MG PO SCH (09:46)
[2018-01-19] MEDS: NS 0.9% 1000 ML* 1,000 ML IV SCH (09:55)
[2018-01-19] MEDS: oxyCODONE/Acetamin 5/325 MG* TAB PO PRN (11:37)
[2018-01-19 14:12] VITALS: BP 125/74
[2018-01-19] MEDS: ESOMEPRAZOLE 40 MG PO SCH (14:39)
[2018-01-19] MEDS ORDERED: ESOMEPRAZOLE 40 MG PO SCH (14:40)
--- NOTE | 2018-01-19 14:56 | PN ---
Progress Note - Progress Note Date of Service: 01/19/18 SOAP: Subjective: []Patient feels well with no CP, SOB, dizziness, fever or chills. she desires dc home Objective: []General: Well appeairng, NAD RLE: dressing changed. Incision was CDI without surrounding erythema. DF/PF intact. DP2+. Sensation intact distally. Assessment: []R prepatellar bursitis s/p i&d, bursectomy Plan: []WBAT keflex outpatient DC and fu dr rivas friday ASA 325 BID x 10 days
[2018-01-20] MEDS ORDERED: Vancomycin Trough Check NOTE FOLLOW UP ONE (09:30)
--- NOTE | 2018-01-21 02:17 | DS ---
DISCHARGE SUMMARY: DATE OF ADMISSION: 01/17/18 DATE OF DISCHARGE: 01/19/18 PROVIDER: Dr. Rashmi Nathan* (dictated by MORIAH Erickson). ANESTHESIA: General. PREOPERATIVE DIAGNOSIS: Infected right prepatellar bursa. OPERATIVE PROCEDURE: Right infected prepatellar bursa irrigation and debridement with bursectomy. HISTORY: Ms. Araujo is a 47-year-old female who has had chronic right knee pain and swelling due to prepatellar bursitis. Over the last 48 hours, she developed acute onset of erythema and warmth. She was seen by outpatient orthopedic clinic on 01/16/18 and was diagnosed with infected prepatellar bursitis. She was placed on Augmentin. She did not improve in the next 24 hours and under orthopedic guidance went to the emergency room. HOSPITAL COURSE: The patient was admitted to [facility]. She underwent a right knee I&D, prepatellar bursectomy without complication. She recovered briefly in the PACU and was transferred to the shortstay surgical unit in stable condition. POD 1 Her dressing was changed. Incision was clean, dry, and intact without surrounding erythema. Dorsiflexion and plantarflexion intact. DP 2+. Sensation intact distally. She was deemed to be medically and orthopedically stable for discharge home. DISCHARGE MEDICATIONS: New medications include: 1. Aspirin 325 mg p.o. b.i.d. for 10 days. 2. Keflex 500 mg p.o. 4 times daily for 7 days. 3. Docusate 100 mg p.o. b.i.d. p.r.n. 4. Percocet 5/325 one to two tabs every 4 to 6 hours p.r.n., max daily dose of 6. DISCHARGE PLAN: The patient will be weightbearing as tolerated. She will follow up with Dr. Nathan this 01/23/18. She will be on Keflex 500 mg 1 tab every 6 hours for 7 days and aspirin 325 mg every 12 hours for 10 days. MORIAH SUERO [id number]/[facility] #: [id number] [facility]
[2018-01-21] MEDS ORDERED: Scopolamine PATCH Remove* 1 NOTE MISC PATCH OFF ONE (08:37)
== END 2018-01-19 16:25 | disposition home or self-care (01) | DRG 312 ==
LOC: ED 10:13 → SSU 13:53
PROVIDERS: ADMIT Orthopaedic Surgery Hand Surgery; ATTEND Orthopaedic Surgery Adult Reconstructive Orthopaedic Surgery
PROC: 0HBKXZZ Excision of Right Lower Leg Skin, External Approach (ICD-10-PCS; 2018-01-18)
PROC: 0MBN0ZZ Excision of Right Knee Bursa and Ligament, Open Approach (ICD-10-PCS; principal; 2018-01-18 08:00)
DX: M71.161 Other infective bursitis, right knee (principal); B95.7 Other staphylococcus as the cause of diseases classified elsewhere; M25.561 Pain in right knee; F31.9 Bipolar disorder, unspecified; J45.909 Unspecified asthma, uncomplicated; M79.7 Fibromyalgia; G47.30 Sleep apnea, unspecified; J30.9 Allergic rhinitis, unspecified; Z79.2 Long term (current) use of antibiotics; Z79.899 Other long term (current) drug therapy; Z88.8 Allergy status to other drugs, medicaments and biological substances; Z87.891 Personal history of nicotine dependence
CPT/HCPCS: 36415; 80053; 80202; 82565; 83605; 84520; 85025; 85048; 86140; 87040; 87070; 87073; 87077; 87186; 87205; 87640; 87641; 93005; 99284; A9270-GY; J0330; J0780; J1100; J1650; J1885; J2250; J2270; J2405; J2704; J2795; J3010; J3030; J3370